=== PATIENT | female | born 1980 | race Hispanic/Latino ===

== ENCOUNTER 2021-05-19 20:28 | Emergency (ER) | payer OTHER ==
[2021-05-19] MEDS ORDERED: KETOROLAC 30 MG/ML INJ ONE ×2 (21:11→23:33)
[2021-05-19] MEDS ORDERED: TETANUS & DIPHTHERIA TOX,ADULT 0.5 ML VIAL ONE (21:11)
--- NOTE | 2021-05-19 21:56 | RAD REPORT ---
EXAM DESCRIPTION: RAD - Ankle Right 3 View - 05/19/2021 9:08 pm CLINICAL HISTORY: PAIN COMPARISON: No comparisons FINDINGS: No fracture, dislocation or periosteal reaction. No joint effusion seen. No joint space na rrowing. Minimal lateral soft tissue swelling. IMPRESSION: Negative right ankle for acute bone or joint finding
--- NOTE | 2021-05-19 21:57 | RAD REPORT ---
EXAM DESCRIPTION: RAD - Knee Right 3 View - 05/19/2021 9:08 pm CLINICAL HISTORY: PAIN COMPARISON: No comparisons FINDINGS: No fracture, dislocation or periosteal reaction.No joint effusion seen. No joint space yolanda rowing. No foreign body or other soft tissue abnormality. IMPRESSION: Negative right knee. Clinical concerns for internal derangement or occult bony injury could be further assessed with MR im aging.
--- NOTE | 2021-05-19 21:57 | RAD REPORT ---
EXAM DESCRIPTION: RAD - Knee Left 3 View - 05/19/2021 9:08 pm CLINICAL HISTORY: PAIN COMPARISON: No comparisons FINDINGS: No fracture, dislocation or periosteal reaction.No joint effusion seen. No joint space yolanda rowing. No soft tissue abnormality. IMPRESSION: Negative left knee. Clinical concerns for internal derangement or occult bony injury could be further assessed with MR im aging.
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
[2021-05-19] MEDS ORDERED: MORPHINE 4 MG/ML SYR ONE (23:27)
[2021-05-19] MEDS ORDERED: ONDANSETRON 4 MG/2 ML VIAL ONE (23:27)
[2021-05-19 23:55] VITALS: BP 149/97; TEMP 98.3; O2SAT 96
[2021-05-20] MEDS ORDERED: KETOROLAC 30 MG/ML INJ IV ONE (02:13)
== END 2021-05-19 23:36 | disposition home or self-care (01) ==
LOC: ER 20:28
DX: S83.8X1A Sprain of other specified parts of right knee, initial encounter (principal); S90.01XA Contusion of right ankle, initial encounter; V03.90XA Pedestrian on foot injured in collision with car, pick-up truck or van, unspecified whether traffic or nontraffic accident, initial encounter; Z23 Encounter for immunization
CPT/HCPCS: 90471; 90714; 96374; 99284; J2405